=== PATIENT | male | born 1995 | race Caucasian/White ===

== ENCOUNTER 2018-05-29 16:58 | Emergency (ER) | payer MEDICAID ==
--- NOTE | 2018-05-29 17:22 | EDPHY ---
H & P Stated Complaint: running fell on left shoulder,last night 12am noted sweling to left shoulde Time Seen by Provider: 05/29/18 17:22 - Personal History Current Tetanus Diphtheria and Acellular Pertussis (TDAP): No - Medical/Surgical History Hx Asthma: No Hx Chronic Respiratory Disease: No Hx Diabetes: No Hx Cardiac Disease: No Hx Renal Disease: No Hx Cirrhosis: No Hx Alcoholism: No Hx HIV/AIDS: No Hx Splenectomy or Spleen Trauma: No Other PMH: none - Social History Smoking Status: Never smoked Constitutional: Initial Vital Signs Temperature (C) 36.9 C 05/29/18 17:07 Heart Rate 113 H 05/29/18 17:07 Respiratory Rate 16 05/29/18 17:07 O2 Sat (%) 94 05/29/18 17:07 O2 Delivery Mode Room Air Allergies/Adverse Reactions: No Known Allergies Allergy (Unverified 05/29/18 17:07) Home Medications: Medication Instructions Recorded Hydrocodone/APAP 5/325 [Climax 1 - 2 each PO Q4-6PRN PRN #20 tab 05/29/18 5/325] Ibuprofen [Motrin] 800 mg PO Q8 #20 tab 05/29/18 Medical Decision Making - Diagnostics Imaging Results: Imaging Impressions Shoulder X-Ray 05/29/18 17:23 Impression: 1. Displaced fracture mid to distal third left clavicle. Imaging: I viewed and interpreted images myself ED Course/Re-evaluation: CHIEF COMPLAINT: Left shoulder injury HISTORY OF PRESENT ILLNESS: The patient is a 22 y/o male complaining of left shoulder pain secondary to falling last night. The patient states that he was running last night around midnight when he fell and landed on his left shoulder. Upon impact he also scraped his left cheek. He denies losing consciousness, vomiting, headache, or vision changes. Since the fall he has had difficulty and pain while moving his left arm. Denies chest pain, shortness of breath, abdominal pain, urinary or bowel complaints, numbness, paresthesias, fevers. REVIEW OF SYSTEMS: A comprehensive 10 system review of systems is otherwise negative aside from elements mentioned in the history of present illness and medical decision making. PHYSICAL EXAM: HR, BP, O2 Sat, RR. Temp noted General Appearance: Alert, well hydrated, appropriate, and non-toxic appearing. Head: Abrasion over left zygomatic arch. No scalp tenderness or obvious injury Eyes: Pupils equal, round, reactive to light and accommodation, EOMI, no trauma , no injection. Ears: Clear bilaterally, no perforation, normal landmarks Nose: Atraumatic, no rhinorrhea, clear. Throat: There is no erythema or exudates, no lesions, normal tonsils, mucus membranes moist. Neck: Supple, 2+ carotid upstroke, nontender, no lymphadenopathy. Respiratory: No retractions, no distress, no wheezes, and no accessory muscle use. Lungs are clear to auscultation bilaterally. Cardiovascular: Regular rate and rhythm, no murmurs, rubs, or gallops. Bilateral carotid, radial, dorsalis pedis, and posterior tibial pulses intact. Good capillary refill all extremities. Gastrointestinal: Abdomen is soft, nontender, non-distended, no masses, no rebound, no guarding, no peritoneal signs. Musculoskeletal: Normal active ROM of all extremities, atraumatic. Neurological: Alert, appropriate, and interactive. The patient has normal DTRs and non-focal cranial nerves, motor, sensory, and cerebellar exam. Skin: No rashes, good turgor, no nodules on palpation. Past medical history: Denies Past surgical history: Denies Family history: Denies Social history: Friend at bedside, student at , lives in [place] DIAGNOSTICS/PROCEDURES/CRITICAL CARE TIME: Left shoulder x-ray: Displaced left clavicular shaft fracture DIFFERENTIAL DIAGNOSIS: The differential diagnosis for the patient's shoulder injury included but was not limited to fracture, ligamentous injury, contusion, muscular strain. MEDICAL DECISION MAKING: The patient is a 22 y/o male presenting with left shoulder pain secondary to falling last night. On exam there is tenderness and an abrasion to the left clavicle. There is also an abrasion over the left zygomatic arch. Left shoulder x-ray ordered. 1731: I reviewed patient's which reveals a displaced left clavicular shaft fracture. The patient's abrasion does not correlate with the fracture. The fracture is not open, he is neurovascularly intact, and there is no sign of compartment syndrome. Patient placed in sling and I have prescribed him Vicodin and Motrin. I have also advised him to follow up with an orthopedic surgeon. Return precautions provided; patient is comfortable with this plan. Departure - Departure Disposition: Home, Routine, Self-Care Clinical Impression: Abrasion Clavicle fracture Qualifiers: Encounter type: initial encounter Clavicle location: shaft Fracture type: closed Fracture alignment: displaced Laterality: left Qualified Code(s): S42.022A - Displaced fracture of shaft of left clavicle, initial encounter for closed fracture Condition: Good Instructions: Clavicle Fracture (ED), Abrasion (ED) Additional Instructions: 1. Rest, ice, elevation. 2. Follow up with an orthopedic surgeon within the next 1-3 days. 3. Return to the emergency department for worsening pain, swelling, numbness, weakness or other concerns. 4. Wear sling at all times until reevaluation. 5. Take Vicodin and Motrin as prescribed for pain. Referrals: Kt Casey MD [Medical Doctor] - As per Instructions Prescriptions: Hydrocodone/APAP 5/325 [Climax 5/325] 1 - 2 each PO Q4-6PRN PRN #20 tab PRN Reason: Pain, Moderate Ibuprofen [Motrin] 800 mg PO Q8 #20 tab
== END 2018-05-29 17:48 | disposition home or self-care (01) ==
DX: S42.022A Displaced fracture of shaft of left clavicle, initial encounter for closed fracture (principal); W19.XXXA Unspecified fall, initial encounter; Y93.02 Activity, running; Y92.9 Unspecified place or not applicable; Y99.9 Unspecified external cause status
CPT/HCPCS: A4565

== ENCOUNTER 2018-06-02 05:41 | Day surgery (SDC) | payer MEDICAID ==
[2018-06-02] MEDS ORDERED: LR 1,000 ML IV ONE (06:32)
[2018-06-02] MEDS ORDERED: BUPIVACAINE/EPI 0.5% 30 ML SDV ONE (06:48)
[2018-06-02] MEDS ORDERED: POLYMYXIN B SULFATE 500,000 UNIT/10 ML SYR IRR ONE (06:49)
[2018-06-02] MEDS ORDERED: BACITRACIN 50,000 UNITS/10 ML SYR IRR ONE (06:49)
[2018-06-02] MEDS ORDERED: ceFAZolin 2 GM/DEXTROSE 100 ML IV ONE (06:50)
--- NOTE | 2018-06-02 06:50 | PDGENHP ---
History and Physical - Chief Complaint Left clavicle pain - History of Present Illness Very pleasant 22 year old male sustained a left clavicle injury when sustaining a ground level fall earlier this week. physical exam skin clean dry and intact, small abrasion over clavicle but fracture site is closed. warm and well perfused distally xrays left clavicle fx plan left clavicle orif pt understands risks, benefits and alternatives. jose daniel History Information - Allergies/Home Medication List Allergies/Adverse Reactions: No Known Allergies Allergy (Unverified 05/29/18 17:07) I have personally reviewed and updated: family history - Past Medical History no pertinent PMH - Surgical History Reports: no pertinent surgical hx - Social History Smoking Status: Never smoked Review of Systems Review of Systems: Physical Exam Physical Exam: Temp Pulse Resp BP Pulse Ox 36.5 C 73 14 127/83 H 95 06/02/18 06:29 06/02/18 06:29 06/02/18 06:29 06/02/18 06:29 06/02/18 06:29
[2018-06-02] MEDS ORDERED: PROPOFOL 200 MG/20 ML VIAL ONE (06:56)
[2018-06-02] MEDS ORDERED: fentaNYL 100 MCG/2 ML INJ ONE ×2 (06:56)
[2018-06-02] MEDS ORDERED: ONDANSETRON 4 MG/2 ML VIAL ONE (06:58)
[2018-06-02] MEDS ORDERED: DEXAMETHASONE 4 MG/ML VIAL ONE (06:58)
[2018-06-02] MEDS ORDERED: MIDAZOLAM 2 MG/2 ML VIAL IVP ONE (06:59)
--- NOTE | 2018-06-02 07:00 | PDANEPAE ---
ANE History of Present Illness left clavicle fx ANE Past Medical History - Cardiovascular History Hx Hypertension: No Hx Arrhythmias: No Hx Chest Pain: No Hx Coronary Artery / Peripheral Vascular Disease: No Hx CHF / Valvular Disease: No Hx Palpitations: No - Pulmonary History Hx COPD: No Hx Asthma/Reactive Airway Disease: No Hx Recent Upper Respiratory Infection: No Hx Oxygen in Use at Home: No Hx Sleep Apnea: No - Neurologic History Hx Cerebrovascular Accident: No Hx Seizures: No Hx Dementia: No - Endocrine History Hx Diabetes: No - Renal History Hx Renal Disorders: No - Liver History Hx Hepatic Disorders: No - Neurological & Psychiatric Hx Hx Neurological and Psychiatric Disorders: No - Cancer History Hx Cancer: No - Congenital Disorder History Hx Congenital Disorders: No - GI History Hx Gastrointestinal Disorders: No - Other Health History Other Health History: n/a - Chronic Pain History Chronic Pain: No - Surgical History Prior Surgeries: wisdom teeth, tonsils ANE Review of Systems Review of Systems: - Exercise capacity METS (RN): 6 METS ANE Patient History - Allergies Allergies/Adverse Reactions: No Known Allergies Allergy (Unverified 05/29/18 17:07) - Home Medications Home medications: home medication list seen and reviewed - NPO status NPO Since - Liquids (Date): 06/01/18 NPO Since - Liquids (Time): 20:30 NPO Since - Solids (Date): 06/01/18 NPO Since - Solids (Time): 21:00 - Anes Hx Anes Hx: no prior problems - Smoking Hx Smoking Status: Never smoked - Family Anes Hx Family Hx Anesthesia Complications: no ANE Labs/Vital Signs - Vital Signs Blood Pressure: 127/83 Heart Rate: 73 Respiratory Rate: 14 O2 Sat (%): 95 Height: 167.64 cm Weight: 63.596 kg ANE Physical Exam - Airway Neck exam: FROM Mallampati Score: Class 1 Mouth exam: normal dental/mouth exam - Pulmonary Pulmonary: no respiratory distress - Cardiovascular Cardiovascular: regular rate and rhythym - ASA Status ASA Status: I ANE Anesthesia Plan Anesthesia Plan: GA w LMA
[2018-06-02] MEDS ORDERED: LIDOCAINE 2% 2 ML INJ ONE ×2 (07:01)
--- NOTE | 2018-06-02 07:02 | POSTANESTH ---
Post Anesthetic Evaluation Cardiovascular Status: Normal, Stable Respiratory Status: Normal, Stable Level of Consciousness/Mental Status: Can Participate in Eval, Alert and Oriented Pain Control: Adequate, Prn Tx Ordered Nausea/Vomiting Control: Adequate, Prn Tx Ordered Complications Possibly Related to Anesthesia: None Noted
[2018-06-02] MEDS ORDERED: NALOXONE HCL 0.4 MG/ML INJ IVP PRN (08:22)
[2018-06-02] MEDS ORDERED: LABETALOL HCL 5 MG/ML 20 ML MDV IVP PRN (08:22)
[2018-06-02] MEDS ORDERED: PROMETHAZINE HCL 25 MG/ML INJ IVP PRN (08:22)
[2018-06-02] MEDS ORDERED: ALBUTEROL 3 ML DEYVIAL IH PRN (08:22)
[2018-06-02] MEDS ORDERED: fentaNYL 100 MCG/2 ML INJ IVP PRN (08:22)
[2018-06-02] MEDS ORDERED: DIAZEPAM 5 MG/ML 1 ML SYR IVP PRN (08:22)
[2018-06-02] MEDS ORDERED: HYDROmorphONE/DILAUDID 2 MG/ML INJ IVP PRN (08:22)
[2018-06-02] MEDS ORDERED: ONDANSETRON 4 MG/2 ML VIAL IVP PRN (08:22)
[2018-06-02] MEDS ORDERED: LR 500 ML IV PRN (08:22)
[2018-06-02] MEDS ORDERED: ACETAMINOPHEN 500 MG TAB PO PRN (08:22)
[2018-06-02] MEDS ORDERED: oxyCODONE IR 5 MG TAB PO PRN (08:22)
[2018-06-02] MEDS ORDERED: HYDROCODONE/APAP 5/325 TAB PO PRN (08:22)
[2018-06-02] MEDS ORDERED: oxyCODONE IR 5 MG TAB ONE (09:19)
[2018-06-02 09:44] VITALS: BP 122/75
--- NOTE | 2018-06-02 12:42 | SUROPNOTE ---
[facility] Operative Report - Surgery Date: 06/02/18 Pre-operative Diagnosis: Left clavicle fracture Post-operative Diagnosis: Same Procedure: Left clavicle ORIF Surgeon: Lucas Cho MD Anesthesia: General endotracheal anesthesia Findings: As expected Estimated Blood Loss: Drains: None Specimens: None Complications: None Condition: Transferred to PACU in stable condition. Implants: [employer] 2.7mm recon plate (superior), 2.4mm recon plate ( anterior), 2.4mm interfragmentary screws Indications: The patient was personally seen and evaluated by me and diagnosed with a fractured clavicle. I have explained all options of treatment for the patient, and the patient has elected to proceed with operative management. I have explained all risks, benefits, and alternatives of the proposed procedure. The risks that we have discussed include , blindness, nerve damage, infection, failure of surgery to alleviate pre-operative symptoms, and possible need for further operation. In addition to the aforementioned procedure, I discussed with the patient that other procedures may be indicated during the course of surgery that would be considered in the patients best interest. The patient expressed understanding of this. Pre-operative: The proposed incision site was marked in the pre-operative holding area by me. The patient was then taken to the operating room in stable condition. Following smooth induction of anesthesia, the patient was positioned on an operating table with all down surfaces well-padded. The patient was then prepped and draped in the usual sterile fashion. Pre-operative antibiotics were administered within one hour of the incision. A surgical timeout was performed, and all parties involved in the procedure were in agreement on the correct patient, location, and procedure to be performed. Approach: Using a standard approach the clavicle, a curvilinear incision was made, centered over the palpable fracture site. The subdermal fat and platysma was transected in line with the incision, and was later repaired. Any crossing clavicular nerves were preserved. The bony ends were visualized and controlled using bone clamps. Fracture reduction: The fracture ends were mobilized and approximated to one another. The fracture edges were cleaned, and irrigated using sterile saline. An xray was taken at this point, and demonstrated good reduction with anatomic alignment of the fracture, which was confirmed with direct visual inspection. Interfragmentary screw and plate application: A ferry pilot hole was then drilled directly through the bone and perpendicular to the fracture from anterior to posterior. A countersink was used, and a 2.4mm screw was introduced across the fracture to maintain reduction. This was done twice. At this point, a 2.7mm plate was applied to the superior surface of the clavicle. The plate was contoured to the patients anatomy. Using a compression technique, the holes were drilled and filled with appropriately-sized 2.7mm screws. In similar fashion, a 2.4mm plate was custom-contoured to the anterior surface of the clavicle. In similar fashion, 2.4mm screws were placed across the fracture site. All screws were then manually tightened. Final radiographs were taken to ensure proper instrumentation placement and trajectory. Fracture reduction was maintained and deemed acceptable. Closure: The surgical field was then copiously irrigated with sterile saline. 2-0 monocryl sutures were used to repair the platysma, a separate dermal layer was repaired with 2-0 monocryl in similar fashion, and a separate 3-0 monofilament suture was used to repair the subcutaneous layer in a running fashion. Topical adhesive was then applied to the skin and allowed to dry. A sterile island dressing was applied over the surgical incision. A surgical count was performed before initiation of closure and following the procedure, and all were correct. I was present for the entire procedure. Recovery: The patient was extubated uneventfully in the operating room. The patient was taken to the recovery room in stable condition. Sequential compression devices for VTE prophylaxis were applied to the patients lower extremities, and were ordered to be used while the patient was non-ambulatory. Sarbjit Cho MD
== END 2018-06-02 10:05 | disposition home or self-care (01) ==
LOC: FSGY 05:41
PROVIDERS: ATTEND Orthopaedic Surgery Orthopaedic Surgery of the Spine
PROC: 0PSB04Z Reposition Left Clavicle with Internal Fixation Device, Open Approach (ICD-10-PCS; principal; 2018-06-02 07:15)
DX: S42.002A Fracture of unspecified part of left clavicle, initial encounter for closed fracture (principal)
CPT/HCPCS: C1713; J0690; J1100; J2250; J2405; J2704; J3010